=== PATIENT | female | born 1990 | race African-American/Black ===

== ENCOUNTER 2017-01-08 20:24 | Observation (INO) | payer OTHER ==
[~2017-01-08] VITALS: Ht 170.2 cm; Wt 80.3 kg
[2017-01-08] MEDS ORDERED: RINGERS SOLUTION,LACTATED 1,000 ML IV SCH (21:45)
[2017-01-08] MEDS ORDERED: PNV11TAB PO (21:56)
== END 2017-01-08 23:50 | disposition home or self-care (01) ==
LOC: 4S 21:21
PROVIDERS: ADMIT Obstetrics & Gynecology; ATTEND Obstetrics & Gynecology
DX: O98.812 Other maternal infectious and parasitic diseases complicating pregnancy, second trimester (principal); B37.3 Candidiasis of vulva and vagina; Z3A.26 26 weeks gestation of pregnancy
CPT/HCPCS: 36415; 76811; 80307; 82731; 87210; 89060; 96360; G0378; J7120